=== PATIENT | male | born 1980 | race Caucasian/White ===

== ENCOUNTER 2018-02-10 08:26 | Emergency (ER) | payer OTHER ==
[~2018-02-10] VITALS: Ht 180.3 cm; Wt 65.8 kg
[2018-02-10] MEDS ORDERED: ACETAMINOPHEN-1 EAC1 PO (09:03)
[2018-02-10] MEDS ORDERED: KEFLEX500 M1 PO (09:03)
[2018-02-10 10:07] VITALS: BP 122/80
== END 2018-02-10 10:08 | disposition home or self-care (01) ==
LOC: M.ERS 08:26
DX: L03.116 Cellulitis of left lower limb (principal)

== ENCOUNTER 2019-04-09 12:10 | Emergency (ER) | payer OTHER ==
[~2019-04-09] VITALS: Ht 180.3 cm; Wt 70.3 kg
[~2019-04-09 12:10] MED LIST: ACETAMINOPHEN-1 EAC1 PO; KEFLEX500 M1 PO; NAPROSYN500 MG PO
[2019-04-09 12:19] VITALS: BP 118/83
[2019-04-09] MEDS ORDERED: BACTRIM DS TAB1 EACH PO (12:28)
[2019-04-09] MEDS ORDERED: TYLENOL WITH CO1 TA1 PO (12:28)
[2019-04-09] MEDS ORDERED: KEFLEX500 M1 PO (12:28)
== END 2019-04-09 12:46 | disposition home or self-care (01) ==
LOC: M.ERS 12:10
DX: L02.214 Cutaneous abscess of groin (principal); L03.314 Cellulitis of groin; F17.210 Nicotine dependence, cigarettes, uncomplicated